=== PATIENT | male | born 1945 | race Caucasian/White ===

== ENCOUNTER → 2021-06-27 09:17 | Outpatient (CLI) | payer MEDICARE, SELFPAY ==
--- NOTE | 2021-06-27 09:21 | DI.RAD.S_ITS ---
PROCEDURE: XR LUMBAR SPINE MIN 4V INDICATIONS: BACK PAIN / TECHNIQUE: 5 views of the lumbar spine were acquired, including bilateral oblique views. COMPARISON: Outside Facility, RG, XR PELVIS WITH LATERAL HIP, 01/30/2021, 9:43. Outside Facility, RG, MRI L-SPINE W/O CONTRAST, 03/14/2021, 14:01. [facility], CR, L-SPINE 2-3 VIEWS, 10/19/2013, 11:11. FINDINGS: Bones: This patient has transitional lumbar anatomy. For the purposes of this examination, the level with the last visualized disc space is considered to be L5-S1. By this numbering scheme, the L5 level is transitional and highly sacralized on the right side. No definite ribs are seen associated with the T12 level. This numbering scheme is to remain consistent with the prior reports. No displaced fractures are seen. No suspicious lytic or blastic lesions are seen. Moderate disc space narrowing is seen at L4-L5 and there is moderate to severe disc space narrowing at L5-S1. Endplate irregularity and sclerosis can be seen inferiorly. Age-appropriate lower thoracic spine degenerative changes are seen. Lower lumbar spine facet arthropathy is seen. There is a focal well-demarcated lesion again seen involving the left iliac wing, which is stable compared to 2014 considered to be benign. Soft tissues: Overlying bowel gas pattern is normal. No suspicious soft tissue calcifications. Atherosclerotic calcification is noted. Oblique images: No pars defects. IMPRESSION: Focal L4-L5 and L5-S1 degenerative change, which has progressed over time. 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 Dictated by: Titus Mueller M.D. on 06/27/2021 at 8:40 Approved by: Titus Mueller M.D. on 06/27/2021 at 8:44
== END ==
PROVIDERS: PCP Family Medicine; Referring Provider Physical Medicine & Rehabilitation; Visit Provider Physical Medicine & Rehabilitation
DX: M47.26 Other spondylosis with radiculopathy, lumbar region (principal); M47.27 Other spondylosis with radiculopathy, lumbosacral region; M51.16 Intervertebral disc disorders with radiculopathy, lumbar region; E11.42 Type 2 diabetes mellitus with diabetic polyneuropathy; M54.9 Dorsalgia, unspecified
CPT/HCPCS: 72110; 99214

== ENCOUNTER → 2021-07-09 13:20 | Outpatient (CLI) | payer MEDICARE, SELFPAY ==
[2021-07-09 15:02] LABS: COVID19 -Nasal RAPID Negative (Negative)
== END ==
PROVIDERS: PCP Family Medicine; Visit Provider Physical Medicine & Rehabilitation
DX: Z20.822 Contact with and (suspected) exposure to COVID-19 (principal)
CPT/HCPCS: 87635; C9803

== ENCOUNTER 2021-07-10 13:57 | Outpatient (CLI) | payer MEDICARE, SELFPAY ==
[2021-07-10] VITALS (8 sets, daily range): BP systolic 95–131; BP diastolic 61–78; PULSE 53–61; RESP 14–21; TEMP 36.4; O2SAT 96–100
--- NOTE | 2021-07-10 13:58 | DI.RAD.S_ITS ---
PROCEDURE: PAIN L/S TRANSFORAMINAL INJECT INDICATIONS: SPONDYLOSIS COMPARISON: [facility], CR, XR LUMBAR SPINE MIN 4V, 06/27/2021, 9:16. FINDINGS: Fluoroscopic spot filming was performed to verify placement of a spinal needle at the L4-L5 level, as labeled on the films. Appropriate location of the needle tip was confirmed by injection of iodinated contrast. IMPRESSION: Intraprocedural examination within normal limits. Dictated by: Titus Mueller M.D. on 07/10/2021 at 14:33 Approved by: Titus Mueller M.D. on 07/10/2021 at 14:33
[2021-07-10] MEDS: MIDAZOLAM 5 MG/5 ML VIAL IV (14:48)
[2021-07-10] MEDS: DEXAMETHASONE 10 MG/ML VIAL 20 MG INJ (14:53)
[2021-07-10] MEDS: BETAMETHASONE 30 MG/5 ML MDV 6 MG INJ (14:53)
[2021-07-10] MEDS: BUPIVACAINE 0.25% (PF) VIAL 2 ML INJ (14:53)
[2021-07-10] MEDS: IOPAMIDOL 15 ML VIAL 3 ML INJ (14:53)
--- NOTE | 2021-07-10 15:04 | P.PCN_ITS ---
Date/Time/Diagnoses Date of procedure: 07/10/21 Time of procedure: 15:04 Pre-procedure diagnosis: 1. FORAMINAL STENOSIS WITH LE SYMPTOMS This procedure is found to meet the Governor's proclamation 20-24.2 regarding non urgent procedures. This patient meets multiple criteria for the procedure including continuing or worsening of significant or severe pain, combined with further deterioration of the patient's condition or overall health as well as delay in treatment would be expected to result in less positive ultimate medical outcome. Therefore the decision to perform the procedure in an outpatient hospital setting is found to be in accordance with guidelines of the proclamation. Post-procedure diagnosis: same Procedure Notes Procedure: 1. FLUOROSCOPICALLY GUIDED CONTRAST CONTROLLED TRANSFORAMINAL EPIDURAL STEROID INJECTION - LEFT L4/5 Indications: Jose is referred by Dr. Jimenez for treatment of Foraminal Stenosis with Left LE Symptoms Physician: Collin Gupta Total Fluoroscopy time (seconds): 8 Total sedation minutes: 9 Complications: none Procedure in detail & Post-procedure care: FINDINGS Foraminal Nerve Root Compression secondary to disc disease and facet hypertrophy DESCRIPTION OF PROCEDURE Following review of allergy and review of potential side effects and complications, including, but not necessarily limited to, infection, allergic reaction, local tissue breakdown, stroke, temporary or permanent nerve injury, paralysis, and possible , the patient indicated that the patient understood and agreed to proceed. An informed consent document was signed by the patient, witnessed by a nurse, and placed in the patient's chart. Additionally, other treatment options including medications, modalities, and physical therapy were reviewed with the patient. After review of previous anaesthesic history and IV conscious sedation the patient was deemed safe to proceed with today?s procedure with IV conscious sedation as ASA class II designation. Safety time-out was performed to confirm patient ID, procedure to be performed and site of procedure. IV sedation was accomplished with a combination of 2mg of Versed administered by the RN after DO order, titrated to patient comfort during the course of the procedure while the patient remained responsive to all verbal commands In the prone position following sterile prep and drape of the lumbar region, the left L4/5 posterior neuroforamen was identified fluoroscopically. The skin was anesthetized via a 25-gauge 1.5-inch needle with 1% lidocaine solution. At this point, a 25-gauge 3.5-inch spinal needle was atraumatically introduced and advanced under fluoroscopic guidance through the posterior left L4/5 neuroforamen to approximately the anterior aspect of the canal. Depth was confirmed on lateral view. Following negative aspiration, injection of approximately 1.5 cc of Isovue 200 under live fluoroscopy in the AP view confirmed excellent flow along the nerve root, into the epidural space without vascular or intrathecal uptake observed Radiological data, including multiple fluoroscopic views of the lumbosacral spine, reveal a spinal needle at the left L4/5 posterior neuroforamen. Subsequent views show flow of contrast material flowing superiorly and inferiorly along the nerve root confirming epidural flow. Subsequently, a test dose of 1.5 cc of 1% lidocaine solution was administered and patient was observed for two minutes for signs or symptoms of complications, including abdominal pain, shortness of breath, bilateral upper or lower extremity weakness, nausea and vomiting, prior to steroid injection. At this point, a total of 3cc or 20mg of dexamethasone and 6mg of betamethasone was injected without incident. The procedure tolerated the procedure well without signs or symptoms of complications prior to transfer to the recovery area continued monitoring without incident. The patient was then transferred to the recovery area where they were observed for an appropriate time after the injection. The patient reported a VAS score of 7 prior to the procedure and a post- procedure VAS of 0. POST OP INSTRUCTIONS The patient was provided a Pain Log to continue to record their response to the target-specific procedure prior to follow-up visit with their referring physician. Additionally, specific post-injection care instructions and a contact number to our office were provided if concerns arise regarding possible complications associated with the procedure are suspected.
== END 2021-07-10 15:30 | disposition home or self-care (01) ==
PROVIDERS: PCP Family Medicine; Referring Provider Physical Medicine & Rehabilitation; Visit Provider Physical Medicine & Rehabilitation
DX: M48.061 Spinal stenosis, lumbar region without neurogenic claudication (principal); M51.16 Intervertebral disc disorders with radiculopathy, lumbar region
CPT/HCPCS: 64483; J0702; J1100; J2250; J3010

== ENCOUNTER → 2021-08-14 10:50 | Outpatient (CLI) | payer MEDICARE, SELFPAY ==
[2021-08-14 12:27] LABS: COVID19 -Nasal RAPID Negative (Negative)
== END ==
PROVIDERS: PCP Family Medicine; Visit Provider Physical Medicine & Rehabilitation
DX: Z20.822 Contact with and (suspected) exposure to COVID-19 (principal)
CPT/HCPCS: 87635; C9803

== ENCOUNTER 2021-08-16 09:01 | Outpatient (CLI) | payer MEDICARE, SELFPAY ==
[2021-08-16] VITALS (9 sets, daily range): BP systolic 97–137; BP diastolic 61–72; PULSE 50–58; RESP 16–25; TEMP 36.5; O2SAT 97–100
--- NOTE | 2021-08-16 09:03 | DI.RAD.S_ITS ---
PROCEDURE: PAIN L/S TRANSFORAMINAL INJECT INDICATIONS: Spondylosis COMPARISON: [facility], , PAIN L/S TRANSFORAMINAL INJECT, 07/10/2021, 15:52. FINDINGS: Fluoroscopic spot filming was performed to verify placement of spinal needles at the left L5-S1 level(s), as labeled on the films. Appropriate location(s) of the needle tip(s) was confirmed by injection of iodinated contrast. IMPRESSION: Fluoro guidance was provided intraoperatively for left L5-S1 transforaminal epidural steroid injection to be performed by referring clinician. Dictated by: Judson Ragsdale M.D. on 08/16/2021 at 10:28 Approved by: Judson Ragsdale M.D. on 08/16/2021 at 10:35
[2021-08-16] MEDS: BUPIVACAINE 0.25% (PF) VIAL 2 ML INJ (10:05)
[2021-08-16] MEDS: IOPAMIDOL 15 ML VIAL 3 ML INJ (10:05)
[2021-08-16] MEDS: DEXAMETHASONE 10 MG/ML VIAL 20 MG INJ (10:05)
[2021-08-16] MEDS: BETAMETHASONE 30 MG/5 ML MDV 6 MG INJ (10:06)
[2021-08-16] MEDS: MIDAZOLAM 5 MG/5 ML VIAL IV (10:07)
--- NOTE | 2021-08-16 10:16 | P.PCN_ITS ---
Date/Time/Diagnoses Date of procedure: 08/16/21 Time of procedure: 10:17 Pre-procedure diagnosis: 1. FORAMINAL STENOSIS WITH LE SYMPTOMS Post-procedure diagnosis: same Procedure Notes Procedure: 1. FLUOROSCOPICALLY GUIDED CONTRAST CONTROLLED TRANSFORAMINAL EPIDURAL STEROID INJECTION - Left L5/S1 Indications: Jose is referred by Dr. Jimenez for treatment of Foraminal Stenosis with Left LE Symptoms Physician: Collin Gupta Total Fluoroscopy time (seconds): 12 Total sedation minutes: 12 Complications: none Procedure in detail & Post-procedure care: FINDINGS Foraminal Nerve Root Compression secondary to disc disease and facet hypertrophy DESCRIPTION OF PROCEDURE Following review of allergy and review of potential side effects and complications, including, but not necessarily limited to, infection, allergic reaction, local tissue breakdown, stroke, temporary or permanent nerve injury, paralysis, and possible , the patient indicated that the patient understood and agreed to proceed. An informed consent document was signed by the patient, witnessed by a nurse, and placed in the patient's chart. Additionally, other treatment options including medications, modalities, and physical therapy were reviewed with the patient. After review of previous anaesthesic history and IV conscious sedation the patient was deemed safe to proceed with today?s procedure with IV conscious sedation as ASA class II designation. Safety time-out was performed to confirm patient ID, procedure to be performed and site of procedure. IV sedation was accomplished with a combination of 2mg of Versed was administered by the RN after DO order, titrated to patient comfort during the course of the procedure while the patient remained responsive to all verbal commands In the prone position following sterile prep and drape of the lumbar region, the Left L5/S1 posterior neuroforamen was identified fluoroscopically. The skin was anesthetized via a 25-gauge 1.5-inch needle with 1% lidocaine solution. At this point, a 25-gauge 3.5-inch spinal needle was atraumatically introduced and advanced under fluoroscopic guidance through the posterior Left L5/S1 neuroforamen to approximately the anterior aspect of the canal. Depth was confirmed on lateral view. Following negative aspiration, injection of approximately 1.5 cc of Isovue 200 under live fluoroscopy in the AP view confir med excellent flow along the nerve root, into the epidural space without vascular or intrathecal uptake observed Radiological data, including multiple fluoroscopic views of the lumbosacral spine, reveal a spinal needle at the Left L5/S1 posterior neuroforamen. Subsequent views show flow of contrast material flowing superiorly and inferiorly along the nerve root confirming epidural flow. Subsequently, a test dose of 1.5 cc of 1% lidocaine solution was administered and patient was observed for two minutes for signs or symptoms of complications, including abdominal pain, shortness of breath, bilateral upper or lower extremity weakness, nausea and vomiting, prior to steroid injection. At this point, a total of 3cc or 20mg of dexamethasone and 6mg of betamethasone was injected without incident. The procedure tolerated the procedure well without signs or symptoms of complications prior to transfer to the recovery area continued monitoring without incident. The patient was then transferred to the recovery area where they were observed for an appropriate time after the injection. The patient reported a VAS score of 7 prior to the procedure and a post-procedure VAS of 0. POST OP INSTRUCTIONS The patient was provided a Pain Log to continue to record their response to the target-specific procedure prior to follow-up visit with their referring phy sician. Additionally, specific post-injection care instructions and a contact number to our office were provided if concerns arise regarding possible complications associated with the procedure are suspected.
== END 2021-08-16 10:37 | disposition home or self-care (01) ==
LOC: RAD 09:03
PROVIDERS: PCP Family Medicine; Referring Provider Physical Medicine & Rehabilitation; Visit Provider Physical Medicine & Rehabilitation
DX: M48.061 Spinal stenosis, lumbar region without neurogenic claudication (principal); M51.16 Intervertebral disc disorders with radiculopathy, lumbar region
CPT/HCPCS: 64483; 99152; J0702; J1100; J2250; J3010

== ENCOUNTER → 2023-05-05 12:56 | Outpatient (CLI) | payer MEDICARE, SELFPAY | PROVIDERS: PCP Family Medicine; Referring Provider Orthopaedic Surgery Foot and Ankle Surgery; Visit Provider Orthopaedic Surgery Foot and Ankle Surgery | DX: Z01.818 Encounter for other preprocedural examination (principal) | CPT/HCPCS: 93005 ==

== ENCOUNTER → 2023-08-19 11:25 | Outpatient (CLI) | payer MEDICARE, SELFPAY ==
--- NOTE | 2023-08-19 11:38 | DI.CT.S_ITS ---
PROCEDURE: CT PEL WO CON INDICATIONS: dorsopathies, sacral and sacrococcygeal region TECHNIQUE: Noncontrast 3 mm axial sections acquired through the bony pelvis, with coronal and sagittal reformatting. COMPARISON: [place], [place], BONE SCAN WHOLE BODY, 09/21/2014, 11:40. FINDINGS: Image quality: Excellent. Bones: No definite acute pelvic fracture or dislocation is seen. Deformity involving lower sacrum suggestive of age indeterminate, likely subacute to chronic lower sacral fracture best seen on series 5, image 67. 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 Bridging osteophyte formation along anterior aspect of right sacroiliac joint is seen. No complete ankylosis is noted in the sacroiliac joint. No evidence of avascular necrosis of femoral head. No suspicious bony lesion. Well-circumscribed oval fluid density structure within left iliac bone with thin sclerotic margin and thin internal septation is noted. Moderate degenerative disc disease in visualized lower lumbar spine is seen. Soft tissues: There is no presacral soft tissue mass. No drainable fluid collection. No pelvic free fluid or free air. Bowel wall thickness is normal. Bladder wall thickness is normal. No pelvic lymphadenopathy by size criteria. There is no soft tissue calcifications. IMPRESSION: 1. Age indeterminate, likely subacute to chronic deformity involving lower sacrum as above. No other pelvic fracture or dislocation. Osteoarthritic changes throughout bony pelvis with anterior bridging osteophyte formation along right sacroiliac joint . No complete ankylosis of the sacroiliac joint is seen. 2. Benign-appearing cystic structure within left iliac bone measures 2.7 x 1.6 cm in size and may represent intraosseous cyst. Radiographic follow-up is recommended. No other suspicious intraosseous lesion is identified. 3. Degenerative disc disease throughout lower lumbar spine. 4. No gross pelvic soft tissue abnormalities. Dictated by: Judson Ragsdale M.D. on 08/19/2023 at 16:42 Approved by: Judson Ragsdale M.D. on 08/19/2023 at 16:47
== END ==
LOC: CT 11:26
PROVIDERS: PCP Family Medicine; Referring Provider Neurological Surgery; Visit Provider Neurological Surgery
DX: M53.88 Other specified dorsopathies, sacral and sacrococcygeal region (principal); M51.36 Other intervertebral disc degeneration, lumbar region
CPT/HCPCS: 72192